=== PATIENT | male | born 1985 | race Caucasian/White ===

== ENCOUNTER 2020-01-26 16:01 | Emergency (ER) | payer OTHER ==
--- NOTE | 2020-01-26 17:01 | ER Document Report ---
ED Animal Bite - General Chief Complaint: Dog Bite Stated Complaint: DOG BITE/ARM PAIN Time Seen by Provider: 01/26/20 16:19 Primary Care Provider: ANGELITA PERDUE DO [Primary Care Provider] - Follow up as needed Mode of Arrival: Ambulatory Information source: Patient Notes: 34-year-old male with no previous medical problems presents to the emergency room with puncture bites to his right forearm. Patient states he was outside fixing a fence when into the neighbor's yard to fix their side of the fence when their dog came out of the house at him. States he put the drill up to prevent one of the dogs from getting him when the second dog grabbed his right forearm. Tetanus is up-to-date. Bleeding is controlled. No medications for symptoms prior to arrival. States dog's vaccines are up-to-date. Animal bite form was completed. TRAVEL OUTSIDE OF THE [place] IN LAST 30 DAYS: No - Related Data Allergies/Adverse Reactions: No Known Allergies Allergy (Unverified 01/26/20 17:33) Past Medical History - General Information source: Patient - Social History Smoking Status: Current Every Day Smoker Frequency of alcohol use: Occasional Drug Abuse: None Family History: Reviewed & Not Pertinent Review of Systems - Review of Systems Constitutional: No symptoms reported EENT: No symptoms reported Cardiovascular: No symptoms reported Respiratory: No symptoms reported Musculoskeletal: Muscle pain, Other - Forearm swelling Skin: Other - Puncture wounds to right forearm Neurological/Psychological: No symptoms reported -: Yes All other systems reviewed and negative Physical Exam - Vital signs Vitals: Temp Pulse Resp BP Pulse Ox 98.7 F 66 16 151/89 H 98 01/26/20 16:06 01/26/20 16:06 01/26/20 16:06 01/26/20 16:06 01/26/20 16:06 - General General appearance: Appears well, Alert In distress: Mild - Respiratory Respiratory status: No respiratory distress Chest status: Nontender Breath sounds: Normal Chest palpation: Normal - Cardiovascular Rhythm: Bradycardia Heart sounds: Normal auscultation Murmur: No - Back Back: Normal, Nontender - Extremities Forearm: Tender, Other - There are 2 puncture wounds that are noted to the right forearm there is a moderate amount of swelling, ecchymosis, tender to palpation. Bleeding is controlled. - Neurological Neuro grossly intact: Yes Cognition: Normal Orientation: AAOx4 Anatoliy Coma Scale Eye Opening: Spontaneous [place]y Coma Scale Verbal: Oriented An[place]y Coma Scale Motor: Obeys Commands Anatoliy Coma Scale Total: 15 Speech: Normal Motor strength normal: LUE, RUE, LLE, RLE Sensory: Normal Notes: Positive right radial pulse. Capillary refill less than 3 seconds. - Skin Skin Temperature: Warm Skin Moisture: Dry Skin Color: Erythema Skin irregularity: other Location of irregularity: Extremities Character of irregularity: Other - Puncture wounds Course - Re-evaluation Re-evalutation: 01/26/20 17:55 Patient's resting comfortably wound was cleansed as documented by nursing staff. Decreased pain. Reviewed x-ray results with patient. He was counseled on proper wound care. Antibiotics as prescribed. Animal report was completed. Outpatient follow-up with primary care physician if not improving in 2 to 3 days. She was given strict return to the emergency room guidelines. Return for any new or worsening symptoms. All questions were answered. Patient verbalized understanding and agrees with plan of care. - Vital Signs Vital signs: Temp Pulse Resp BP Pulse Ox 98.3 F 59 L 14 134/77 H 96 01/26/20 17:36 01/26/20 17:36 01/26/20 17:36 01/26/20 17:36 01/26/20 17:36 - Diagnostic Test Radiology reviewed: Reports reviewed Discharge - Discharge Clinical Impression: Dog bite of right forearm Qualifiers: Encounter type: initial encounter Qualified Code(s): S51.851A - Open bite of right forearm, initial encounter Puncture wound of right forearm Qualifiers: Encounter type: initial encounter Qualified Code(s): S51.831A - Puncture wound without foreign body of right forearm, initial encounter Condition: Stable Disposition: HOME, SELF-CARE Instructions: Animal Bites ([facility]), Puncture Wound ([facility]) Additional Instructions: Please monitor very closely for any signs of infection from your dog bite including spreading redness from the area, pus from the wound, or worsening pain. Clean the area twice daily with soap and water and then apply topical antibiotic ointment. Please take all the antibiotics that you were prescribed until they are gone. Follow-up with your primary care physician as needed. Prescriptions: Amoxicillin/Potassium Clav [Augmentin 875-125 Tablet] 1 tab PO Q12 10 Days #20 tablet Referrals: ANGELITA PERDUE DO [Primary Care Provider] - Follow up as needed
[2020-01-26] MEDS ORDERED: IBUPROFEN 600 MG TABLET PO ONE (17:02)
--- NOTE | 2020-01-26 17:42 | RADIOLOGY REPORT (SQ) ---
EXAM DESCRIPTION: FOREARM RIGHT IMAGES COMPLETED DATE/TIME: 01/26/2020 4:25 pm REASON FOR STUDY: injury. Dog bite today. Open wound, penetrating injury. Area was marked on the radiograph. COMPARISON: None. NUMBER OF VIEWS: Two views. TECHNIQUE: Two radiographic images acquired of the right forearm, including elbow and wrist in at le ast one projection. LIMITATIONS: None. FINDINGS: MINERALIZATION: Normal. BONES: No acute fracture. No worrisome bone lesions. SOFT TISSUES: Soft tissue swelling and laceration in the proximal forearm. No radiopaque foreign bod y. OTHER: No other significant finding. IMPRESSION: Soft tissue swelling and laceration in the proximal right forearm. No radiopaque foreig n body or underlying fracture. TECHNICAL DOCUMENTATION: JOB ID: [id number] 2010 [employer]- All Rights Reserved Reading location - IP/workstation name: [email or web address]
[2020-01-26 17:49] VITALS: BP 134/77
== END 2020-01-26 18:14 | disposition home or self-care (01) ==
LOC: ER 16:01
DX: S51.851A Open bite of right forearm, initial encounter (principal); W54.0XXA Bitten by dog, initial encounter; Y93.89 Activity, other specified; Y92.007 Garden or yard of unspecified non-institutional (private) residence as the place of occurrence of the external cause; R00.1 Bradycardia, unspecified; F17.200 Nicotine dependence, unspecified, uncomplicated
CPT/HCPCS: 99283